=== PATIENT | female | born 1990 | race Asian ===

== ENCOUNTER 2018-01-15 21:17 | Emergency (ER) | payer SELFPAY ==
[~2018-01-15] VITALS: Ht 167.6 cm; Wt 71.0 kg
[2018-01-15 21:19] VITALS: BP 119/84
[2018-01-15] MEDS ORDERED: SODIUM CHLORIDE 0.9% 1,000 ML IV ONE (21:45)
[2018-01-15] MEDS ORDERED: ONDANSETRON HCL 4 MG/2 ML VIAL IVP ONE (21:45)
== END 2018-01-15 22:30 | disposition left against medical advice (07) ==
LOC: EMS 21:19
DX: R10.9 Unspecified abdominal pain (principal); R11.10 Vomiting, unspecified; Z53.21 Procedure and treatment not carried out due to patient leaving prior to being seen by health care provider
CPT/HCPCS: J2405; J7030